=== PATIENT | male | born 1960 | race American Indian/Alaskan Native ===

== ENCOUNTER 2021-12-09 06:24 | Inpatient (IN) | payer MEDICAID ==
[~2021-12-09] VITALS: Ht 172.7 cm; Wt 60.1 kg
[2021-12-09] VITALS (13 sets, daily range): BP systolic 87–123; BP diastolic 42–67
[2021-12-09] MEDS: normal saline 1000ml 1,000 ML IV SCH ×3 (10:50→22:01)
[2021-12-09] MEDS ORDERED: normal saline 1000ml 1,000 ML IV ONE (10:50)
--- NOTE | 2021-12-09 12:21 | NUR ---
patient her via air, transferred from [facility] to [facility], belonging and meds inventoried
[2021-12-09] MEDS ORDERED: HYDROcodone/acetaminophen 5mg/325mg tablet PO PRN (12:30)
[2021-12-09 12:55] LABS: HEMATOCRIT 25.5 % (42.0-52.0); HEMOGLOBIN 8.2 g/dl (14.0-17.9); MEAN CORPUSCULAR HEMOGLOBIN 29.5 PG (27.0-31.0); MEAN CORPUSCULAR HGB CONC 32.3 g/dL (33.0-36.5); MEAN CORPUSCULAR VOLUME 91.4 FL (78-98); MEAN PLATELET VOLUME 8.3 FL (7.4-10.4); PLATELET COUNT 280 X10'3 (140-440); RED BLOOD COUNT 2.79 X10'6 (4.70-6.10); RED CELL DISTRIBUTION WIDTH 16.2 % (11.5-14.5); WHITE BLOOD COUNT 9.3 X10'3 (4.5-11.0)
[2021-12-09 13:01] LABS: ALBUMIN 2.3 G/DL (3.4-5.0); ANION GAP 9 (8-16); BILIRUBIN,TOTAL 0.5 MG/DL (0.1-1.0); BLOOD UREA NITROGEN 40 MG/DL (7-18); BUN/CREATININE RATIO 22.3 (5.4-32.0); CHLORIDE 115 MMOL/L (99-107); CREATININE 1.79 MG/DL (0.60-1.10); GLUCOSE 94 MG/DL (70-104); MAGNESIUM 2.6 MG/DL (1.5-2.4); SODIUM 141 MMOL/L (135-145); TOTAL CARBON DIOXIDE 16.6 MMOL/L (24-32); TOTAL PROTEIN 5.1 G/DL (6.4-8.2); eGFR 39 ML/MIN
[2021-12-09 13:02] LABS: ALANINE AMINOTRANSFERASE 10 U/L (12-78); ALBUMIN/GLOBULIN RATIO 0.8 (1.1-1.5); ALKALINE PHOSPHATASE 57 IU/L (46-116); ASPARTATE AMINO TRANSFERASE 11 U/L (10-37)
--- NOTE | 2021-12-09 18:16 | NUR ---
Problems reprioritized. Patient report given, questions answered & plan of care reviewed with AMANDA Briscoe.
[2021-12-09 18:19] LABS: HEMATOCRIT 24.5 % (42.0-52.0); HEMOGLOBIN 8.2 g/dl (14.0-17.9); MEAN CORPUSCULAR HEMOGLOBIN 29.5 PG (27.0-31.0); MEAN CORPUSCULAR HGB CONC 33.6 g/dL (33.0-36.5); MEAN CORPUSCULAR VOLUME 87.8 FL (78-98); MEAN PLATELET VOLUME 7.9 FL (7.4-10.4); PLATELET COUNT 263 X10'3 (140-440); RED BLOOD COUNT 2.79 X10'6 (4.70-6.10); RED CELL DISTRIBUTION WIDTH 15.5 % (11.5-14.5); WHITE BLOOD COUNT 8.5 X10'3 (4.5-11.0)
[2021-12-09] MEDS: HYDROcodone/acetaminophen 5mg/325mg tablet PO PRN (21:37)
[2021-12-09 23:59] LABS: HEMATOCRIT 23.4 % (42.0-52.0); HEMOGLOBIN 7.9 g/dl (14.0-17.9); MEAN CORPUSCULAR HEMOGLOBIN 29.8 PG (27.0-31.0); MEAN CORPUSCULAR VOLUME 87.9 FL (78-98); PLATELET COUNT 265 X10'3 (140-440); RED BLOOD COUNT 2.66 X10'6 (4.70-6.10); RED CELL DISTRIBUTION WIDTH 16.4 % (11.5-14.5); WHITE BLOOD COUNT 7.5 X10'3 (4.5-11.0)
[2021-12-10] VITALS (24 sets, daily range): BP systolic 82–162; BP diastolic 45–93
[2021-12-10] MEDS ORDERED: fentaNYL/PF 50MCG/1 ML 2ML syringe IV PRN (00:15)
--- NOTE | 2021-12-10 06:49 | NUR ---
Patient in room CICU 2009. I have received report from Rachna PATEL and had the opportunity to ask questions and assume patient care.
[2021-12-10 07:21] LABS: BASOPHILS % (AUTO) 0.6 % (0-1); EOSINOPHILS # (AUTO) 0.1 X10'3 (0-0.9); EOSINOPHILS % (AUTO) 1.1 % (0-6); HEMATOCRIT 26.2 % (42.0-52.0); HEMOGLOBIN 8.9 g/dl (14.0-17.9); LYMPHOCYTES # (AUTO) 2.4 X10'3 (1.1-4.8); LYMPHOCYTES % (AUTO) 34.2 % (21-51); MEAN CORPUSCULAR VOLUME 88.3 FL (78-98); MONOCYTES # (AUTO) 0.6 X10'3 (0-0.9); MONOCYTES % (AUTO) 8.7 % (2-12); NEUTROPHILS # (AUTO) 3.9 X10'3 (1.8-7.7); NEUTROPHILS % (AUTO) 55.4 % (42-75); PLATELET COUNT 266 X10'3 (140-440); RED BLOOD COUNT 2.96 X10'6 (4.70-6.10); RED CELL DISTRIBUTION WIDTH 16.3 % (11.5-14.5); WHITE BLOOD COUNT 7.1 X10'3 (4.5-11.0)
[2021-12-10 07:39] LABS: ALANINE AMINOTRANSFERASE 11 U/L (12-78); ALBUMIN 2.4 G/DL (3.4-5.0); ALBUMIN/GLOBULIN RATIO 0.9 (1.1-1.5); ALKALINE PHOSPHATASE 58 IU/L (46-116); ANION GAP 6 (8-16); ASPARTATE AMINO TRANSFERASE 14 U/L (10-37); BILIRUBIN,TOTAL 0.3 MG/DL (0.1-1.0); BLOOD UREA NITROGEN 21 MG/DL (7-18); BUN/CREATININE RATIO 18.3 (5.4-32.0); CALCIUM 7.8 MG/DL (8.5-10.1); CHLORIDE 117 MMOL/L (99-107); CREATININE 1.15 MG/DL (0.60-1.10); GLUCOSE 92 MG/DL (70-104); POTASSIUM 5.3 MMOL/L (3.5-5.1); SODIUM 144 MMOL/L (135-145); TOTAL CARBON DIOXIDE 20.6 MMOL/L (24-32); eGFR 64 ML/MIN
[2021-12-10] MEDS ORDERED: METO25TA6 PO (08:08)
[2021-12-10] MEDS ORDERED: ERGO500054 PO (08:08)
[2021-12-10] MEDS ORDERED: GABA600T13 (08:08)
[2021-12-10] MEDS ORDERED: RIVA20TA PO (08:08)
[2021-12-10] MEDS ORDERED: MAGN400T56 PO (08:08)
[2021-12-10] MEDS ORDERED: DULO60CA65 PO (08:08)
[2021-12-10] MEDS ORDERED: ASPI-1397 PO (08:08)
[2021-12-10] MEDS ORDERED: CHOL20002 PO (08:08)
[2021-12-10] MEDS ORDERED: BENA40TA72 PO (08:08)
[2021-12-10] MEDS ORDERED: NORT50CA PO (08:08)
[2021-12-10] MEDS ORDERED: OMEP40CA21 PO (08:08)
[2021-12-10] MEDS ORDERED: BECL10.6 PO (08:08)
[2021-12-10] MEDS ORDERED: TAMSULOSIN (08:08)
[2021-12-10] MEDS ORDERED: HYDR-3972 PO (08:08)
[2021-12-10] MEDS ORDERED: SPIR25TA5 PO (08:08)
[2021-12-10] MEDS ORDERED: LIDO35.4 (08:08)
--- NOTE | 2021-12-10 08:30 | NUR ---
off unit with GI lab crew
[2021-12-10] MEDS ORDERED: fentaNYL/PF 50MCG/1 ML 2ML syringe ONE (08:45)
[2021-12-10] MEDS ORDERED: MIDAZolam 1 MG/ML 5ML VIAL ONE (08:45)
[2021-12-10] MEDS ORDERED: LIDOcaine Viscous 15ml cup ONE (08:45)
[2021-12-10] MEDS ORDERED: PEG 3350/Na sulf,bicarb,Cl/KCl oral sol 4 liter bottle PO ONE (11:45)
[2021-12-10 12:07] LABS: HEMATOCRIT 29.6 % (42.0-52.0); HEMOGLOBIN 9.8 g/dl (14.0-17.9); MEAN CORPUSCULAR VOLUME 87.8 FL (78-98); MEAN PLATELET VOLUME 8.3 FL (7.4-10.4); PLATELET COUNT 289 X10'3 (140-440); RED BLOOD COUNT 3.37 X10'6 (4.70-6.10); RED CELL DISTRIBUTION WIDTH 16.6 % (11.5-14.5); WHITE BLOOD COUNT 8.4 X10'3 (4.5-11.0)
--- NOTE | 2021-12-10 12:56 | NUR ---
Patient back to unit 1130, placed in bed and on monitor
--- NOTE | 2021-12-10 12:56 | NUR ---
called Gi lab to verify golytly start time, stated to start late pm and finish by midnight,
[2021-12-10] MEDS ORDERED: POTASSIUM BICARB 20meq eff tab 20 MEQ TABLET.EFF PO PRN ×2 (13:40)
[2021-12-10] MEDS ORDERED: ondansetron/PF 4mg/2ml inj IV PRN (13:40)
[2021-12-10] MEDS ORDERED: magnesium hydroxide 30ml (MOM) UD suspension PO PRN (13:40)
[2021-12-10] MEDS ORDERED: LIDOcaine 2% 10ml TOPICAL JELLY (Urojet) TP ONE (13:40)
[2021-12-10] MEDS ORDERED: acetaminophen 325mg tablet PO PRN ×2 (13:40)
--- NOTE | 2021-12-10 14:23 | NUR ---
called ortho to give report, RN unavailable, stated they will have her call me back
--- NOTE | 2021-12-10 15:14 | NUR ---
Called neuro ext [phone] talked to Destiney PATEL gave report
[2021-12-10 17:44] LABS: HEMATOCRIT 28.3 % (42.0-52.0); HEMOGLOBIN 9.6 g/dl (14.0-17.9); MEAN CORPUSCULAR HEMOGLOBIN 29.9 PG (27.0-31.0); MEAN CORPUSCULAR HGB CONC 33.9 g/dL (33.0-36.5); MEAN CORPUSCULAR VOLUME 88.2 FL (78-98); MEAN PLATELET VOLUME 7.8 FL (7.4-10.4); PLATELET COUNT 304 X10'3 (140-440); RED CELL DISTRIBUTION WIDTH 16.1 % (11.5-14.5); WHITE BLOOD COUNT 9.5 X10'3 (4.5-11.0)
--- NOTE | 2021-12-10 18:10 | NUR ---
Problems reprioritized. Patient report given, questions answered & plan of care reviewed with Francisco PATEL.
--- NOTE | 2021-12-10 18:25 | NUR ---
Problems reprioritized. Patient report given, questions answered & plan of care reviewed with Francisco PATEL.
[2021-12-10] MEDS: sennosides/docusate sodium tablet PO SCH (18:58)
[2021-12-10] MEDS: HYDROcodone/acetaminophen 10/325mg tab PO PRN (18:59)
[2021-12-10] MEDS: normal saline 1000ml 1,000 ML IV SCH (19:09)
[2021-12-10] MEDS ORDERED: ergocalciferol (vit D2) capsule 50,000 UNITS (1,250mcg) CAPSULE PO SCH (19:20)
[2021-12-10] MEDS: budesonide 0.5mg/2ml UD nebule IH SCH (19:49)
[2021-12-10] MEDS: nortriptyline 25mg capsule PO SCH (20:30)
[2021-12-11] VITALS (7 sets, daily range): BP systolic 128–147; BP diastolic 67–85
[2021-12-11 00:20] LABS: HEMATOCRIT 27.2 % (42.0-52.0); HEMOGLOBIN 9.3 g/dl (14.0-17.9); MEAN CORPUSCULAR HGB CONC 34.3 g/dL (33.0-36.5); MEAN CORPUSCULAR VOLUME 87.6 FL (78-98); MEAN PLATELET VOLUME 8.2 FL (7.4-10.4); PLATELET COUNT 271 X10'3 (140-440); RED CELL DISTRIBUTION WIDTH 16.3 % (11.5-14.5); WHITE BLOOD COUNT 9.6 X10'3 (4.5-11.0)
[2021-12-11] MEDS: normal saline 1000ml 1,000 ML IV SCH ×3 (02:50→22:50)
[2021-12-11] MEDS: HYDROcodone/acetaminophen 10/325mg tab PO PRN ×2 (05:38→11:14)
[2021-12-11 06:59] LABS: HEMATOCRIT 27.5 % (42.0-52.0); HEMOGLOBIN 9.4 g/dl (14.0-17.9); MEAN CORPUSCULAR HGB CONC 34.1 g/dL (33.0-36.5); MEAN CORPUSCULAR VOLUME 88.1 FL (78-98); MEAN PLATELET VOLUME 8.3 FL (7.4-10.4); PLATELET COUNT 293 X10'3 (140-440); RED BLOOD COUNT 3.12 X10'6 (4.70-6.10); RED CELL DISTRIBUTION WIDTH 16.4 % (11.5-14.5); WHITE BLOOD COUNT 7.7 X10'3 (4.5-11.0)
[2021-12-11 07:22] LABS: MAGNESIUM 1.9 MG/DL (1.5-2.4); POTASSIUM 4.2 MMOL/L (3.5-5.1)
[2021-12-11] MEDS: budesonide 0.5mg/2ml UD nebule IH SCH ×2 (07:29→19:39)
[2021-12-11] MEDS: pantoprazole 40mg Tablet.DR PO SCH ×2 (07:30→08:00)
[2021-12-11] MEDS: duloxetine 30mg CAPSULE.DR PO SCH (08:00)
[2021-12-11] MEDS: K and/or MAG REPLACEMENT MC SCH (08:00)
[2021-12-11] MEDS: cholecalciferol (vitamin D3) 1,000 unit (25mcg) tablet PO SCH (08:00)
[2021-12-11] MEDS: metoprolol tartrate 25mg tablet PO SCH (08:00)
[2021-12-11] MEDS: lisinopril 20mg tablet PO SCH (08:00)
[2021-12-11] MEDS: magnesium oxide 400mg tablet PO SCH (08:00)
[2021-12-11] MEDS: sennosides/docusate sodium tablet PO SCH (08:00)
[2021-12-11 11:51] LABS: HEMATOCRIT 27.4 % (42.0-52.0); HEMOGLOBIN 9.1 g/dl (14.0-17.9); MEAN CORPUSCULAR HEMOGLOBIN 28.9 PG (27.0-31.0); MEAN CORPUSCULAR HGB CONC 33.1 g/dL (33.0-36.5); MEAN CORPUSCULAR VOLUME 87.4 FL (78-98); PLATELET COUNT 294 X10'3 (140-440); RED BLOOD COUNT 3.13 X10'6 (4.70-6.10)
[2021-12-11] MEDS ORDERED: MIDAZolam 1 MG/ML 5ML VIAL ONE (15:23)
[2021-12-11] MEDS ORDERED: fentaNYL/PF 50MCG/1 ML 2ML syringe ONE (15:23)
--- NOTE | 2021-12-11 18:17 | NUR ---
Problems reprioritized. Patient report given, questions answered & plan of care reviewed with Janessa PATEL.
[2021-12-11 18:18] LABS: HEMOGLOBIN 9.3 g/dl (14.0-17.9); MEAN CORPUSCULAR HEMOGLOBIN 29.2 PG (27.0-31.0); MEAN CORPUSCULAR HGB CONC 33.2 g/dL (33.0-36.5); MEAN CORPUSCULAR VOLUME 87.9 FL (78-98); MEAN PLATELET VOLUME 8.1 FL (7.4-10.4); PLATELET COUNT 298 X10'3 (140-440); RED BLOOD COUNT 3.19 X10'6 (4.70-6.10); RED CELL DISTRIBUTION WIDTH 16.4 % (11.5-14.5)
[2021-12-11] MEDS: nortriptyline 25mg capsule PO SCH (20:33)
[2021-12-11] MEDS: HYDROcodone/acetaminophen 5mg/325mg tablet PO PRN (20:35)
[2021-12-12 01:35] LABS: HEMATOCRIT 25.6 % (42.0-52.0); HEMOGLOBIN 8.7 g/dl (14.0-17.9); MEAN CORPUSCULAR HEMOGLOBIN 30.1 PG (27.0-31.0); MEAN CORPUSCULAR HGB CONC 33.8 g/dL (33.0-36.5); MEAN CORPUSCULAR VOLUME 88.8 FL (78-98); MEAN PLATELET VOLUME 8.1 FL (7.4-10.4); PLATELET COUNT 274 X10'3 (140-440); RED BLOOD COUNT 2.88 X10'6 (4.70-6.10); RED CELL DISTRIBUTION WIDTH 16.2 % (11.5-14.5); WHITE BLOOD COUNT 9.4 X10'3 (4.5-11.0)
[2021-12-12 06:00] VITALS: BP 94/32
[2021-12-12 07:20] LABS: MAGNESIUM 1.9 MG/DL (1.5-2.4); POTASSIUM 3.9 MMOL/L (3.5-5.1)
[2021-12-12 07:22] LABS: HEMATOCRIT 27.7 % (42.0-52.0); HEMOGLOBIN 9.4 g/dl (14.0-17.9); MEAN CORPUSCULAR HEMOGLOBIN 29.9 PG (27.0-31.0); MEAN CORPUSCULAR HGB CONC 33.9 g/dL (33.0-36.5); MEAN CORPUSCULAR VOLUME 88.3 FL (78-98); PLATELET COUNT 296 X10'3 (140-440); RED BLOOD COUNT 3.14 X10'6 (4.70-6.10); RED CELL DISTRIBUTION WIDTH 16.3 % (11.5-14.5)
[2021-12-12] MEDS: budesonide 0.5mg/2ml UD nebule IH SCH (07:35)
[2021-12-12] MEDS: pantoprazole 40mg Tablet.DR PO SCH ×2 (08:00→08:05)
[2021-12-12] MEDS: K and/or MAG REPLACEMENT MC SCH (08:03)
[2021-12-12] MEDS: cholecalciferol (vitamin D3) 1,000 unit (25mcg) tablet PO SCH (08:05)
[2021-12-12] MEDS: magnesium oxide 400mg tablet PO SCH (08:05)
[2021-12-12] MEDS: duloxetine 30mg CAPSULE.DR PO SCH (08:05)
[2021-12-12] MEDS: metoprolol tartrate 25mg tablet PO SCH (08:05)
[2021-12-12] MEDS: lisinopril 20mg tablet PO SCH (08:05)
[2021-12-12 10:00] VITALS: BP 116/74
[2021-12-12 12:24] LABS: HEMATOCRIT 27.5 % (42.0-52.0); HEMOGLOBIN 9.1 g/dl (14.0-17.9); MEAN CORPUSCULAR HEMOGLOBIN 28.9 PG (27.0-31.0); MEAN CORPUSCULAR HGB CONC 33.1 g/dL (33.0-36.5); MEAN CORPUSCULAR VOLUME 87.5 FL (78-98); PLATELET COUNT 309 X10'3 (140-440); RED BLOOD COUNT 3.14 X10'6 (4.70-6.10); WHITE BLOOD COUNT 11.4 X10'3 (4.5-11.0)
--- NOTE | 2021-12-12 15:37 | NUR ---
PATIENT DISCHARGE HOME.
== END 2021-12-12 15:25 | disposition home or self-care (01) | DRG 244 ==
LOC: CICU 2S 10:20 → UNDOADMIN 10:20 → CICU 2S 10:34 → ORTHO 4S 12-10 15:40 → CICU 2S 12-10 15:40
PROVIDERS: ADMIT Internal Medicine; ATTEND Family Medicine
PROC: 0D748ZZ Dilation of Esophagogastric Junction, Via Natural or Artificial Opening Endoscopic (ICD-10-PCS; 2021-12-10)
PROC: 0DBP8ZZ Excision of Rectum, Via Natural or Artificial Opening Endoscopic (ICD-10-PCS; principal; 2021-12-11)
PROC: 0DBN8ZZ Excision of Sigmoid Colon, Via Natural or Artificial Opening Endoscopic (ICD-10-PCS; 2021-12-11)
DX: K57.31 Diverticulosis of large intestine without perforation or abscess with bleeding (principal); N17.0 Acute kidney failure with tubular necrosis; K22.2 Esophageal obstruction; I95.9 Hypotension, unspecified; Z89.612 Acquired absence of left leg above knee; F17.210 Nicotine dependence, cigarettes, uncomplicated; F32.A Depression, unspecified; D50.9 Iron deficiency anemia, unspecified; G89.4 Chronic pain syndrome; I12.9 Hypertensive chronic kidney disease with stage 1 through stage 4 chronic kidney disease, or unspecified chronic kidney disease; K62.1 Rectal polyp; K44.9 Diaphragmatic hernia without obstruction or gangrene; K63.5 Polyp of colon; K21.9 Gastro-esophageal reflux disease without esophagitis; I25.10 Atherosclerotic heart disease of native coronary artery without angina pectoris; N18.9 Chronic kidney disease, unspecified; I73.9 Peripheral vascular disease, unspecified; J44.9 Chronic obstructive pulmonary disease, unspecified; I25.2 Old myocardial infarction; Z79.01 Long term (current) use of anticoagulants; Z86.718 Personal history of other venous thrombosis and embolism; Z88.0 Allergy status to penicillin; Z79.899 Other long term (current) drug therapy
CPT/HCPCS: 36415; 43235; 45385; 80053; 82948; 83735; 84132; 85025; 85027; 87081; 94640; 94760; 97116; 97161; 97530; 99152; 99153; A4620; A6213; A6446; C1773; G0378; J2250; J3010; J7030